=== PATIENT | female | born 1955 | race Caucasian/White ===

== ENCOUNTER 2023-10-01 09:30 | Day surgery (SDC) | payer BC ==
[2023-09-11 13:21] LABS: ALBUMIN 3.5 g/dL (3.4-4.8); CREATININE 0.84 mg/dL (0.55-1.30); POTASSIUM 4.3 mmol/L (3.5-5.1); TOTAL BILIRUBIN 0.6 mg/dL (0.0-1.0); TOTAL PROTEIN, SERUM 7.6 g/dL (6.4-8.3)
[2023-09-11 13:33] LABS: BASOPHILS # (AUTO) 0.1 K/uL (0.0-0.2); BASOPHILS % (AUTO) 0.8 % (0.0-2.0); EOSINOPHILS # (AUTO) 0.1 K/uL (0.0-0.4); EOSINOPHILS % (AUTO) 0.5 % (0.0-4.0); HEMATOCRIT 44.8 % (36-48); HEMOGLOBIN 14.4 g/dL (12.0-16.0); LYMPHOCYTES % (AUTO) 19.5 % (20.5-51.5); MEAN CORPUSCULAR HEMOGLOBIN 26 pg (27-31); MEAN CORPUSCULAR HGB CONC 32 % (32-36); MEAN CORPUSCULAR VOLUME 80 fL (79.0-98.0); MONOCYTES # (AUTO) 0.5 K/uL (0.0-1.0); NEUTROPHILS # (AUTO) 7.4 K/uL (1.8-7.7); NEUTROPHILS % (AUTO) 74.2 % (40.0-70.0); PLATELET COUNT (AUTO) 259 K/uL (130-430); RED BLOOD CELL COUNT(AUTO) 5.57 MIL/uL (4.2-6.2); RED CELL DISTRIBUTION WIDTH 14.8 % (9.0-15.0)
[2023-09-11 14:09] LABS: PROTHROMBIN TIME 10.6 SECS (9.5-12.5)
[~2023-10-01] VITALS: Ht 162.6 cm; Wt 100.4 kg
[2023-10-01] MEDS: CEFAZOLIN SOD 2 GM in D5W 50 ML IV ONE (07:00)
[2023-10-01] MEDS: ACETAMINOPHEN 500 MG TABLET ONE (09:43)
[2023-10-01] MEDS: GABAPENTIN 300 MG CAPSULE ONE (09:43)
[2023-10-01] MEDS: GABAPENTIN 300 MG CAPSULE PO ONE (10:08)
[2023-10-01] MEDS: ACETAMINOPHEN 500 MG TABLET PO ONE (10:08)
[2023-10-01] MEDS ORDERED: HYDROmorphone 1 MG/ML INJ. CARTRIDGE IVP PRN ×4 (11:00→12:00)
[2023-10-01] MEDS ORDERED: LORATADINE 10 MG TABLET PO PRN (11:00)
[2023-10-01] MEDS ORDERED: traMADol HCL HCL 50 MG TABLET (ULTRAM) PO PRN (11:00)
[2023-10-01] MEDS ORDERED: ONDANSETRON HCL 4 MG/2 ML VIAL IVP PRN (11:45)
[2023-10-01] MEDS ORDERED: MEPERIDINE HCL/PF 25 MG/ML DISP.SYRIN IVP PRN (12:00)
[2023-10-01] MEDS ORDERED: METOCLOPRAMIDE HCL 10 MG/2 ML VIAL IVP PRN ×2 (12:00→13:45)
[2023-10-01] MEDS ORDERED: LABETALOL 100 MG/ 20ML VIAL IVP PRN (12:00)
[2023-10-01] MEDS ORDERED: LACTULOSE 20 GM/30 ML UDC PO PRN (13:45)
[2023-10-01] MEDS ORDERED: DIPHENHYDRAMINE HCL 25 MG CAPSULE PO PRN (13:45)
[2023-10-01] MEDS ORDERED: BISACODYL 10 MG/SUPPOSITORY RC PRN (13:45)
[2023-10-01] MEDS ORDERED: ceFAZolin SODIUM 1 GM VIAL ONE (13:45)
[2023-10-01] MEDS: HYDROmorphone 1 MG/ML INJ. CARTRIDGE IVP PRN (14:41)
[2023-10-01] MEDS: HYDROmorphone 1 MG/ML INJ. CARTRIDGE ONE ×2 (14:41→15:03)
[2023-10-01] MEDS ORDERED: EMPA10TA PO (14:52)
[2023-10-01] MEDS ORDERED: VITD2000 PO (14:52)
[2023-10-01] MEDS ORDERED: CELE200C PO (14:52)
[2023-10-01] MEDS ORDERED: LIP80 PO (14:52)
[2023-10-01] MEDS ORDERED: BENA20TA75 PO (14:52)
[2023-10-01] MEDS ORDERED: INSULIN REGULAR, HUMAN 100 UNITS/ML, 3 ML VIAL (humuLIN R) SUBCUT PRN (15:30)
[2023-10-01 16:00] VITALS: BP_SYST 136; PULSE 64; RESP 16; TEMP 96.2; O2SAT 97
[2023-10-01] MEDS: oxyCODONE HCL 5 MG TABLET PO PRN (16:26)
[2023-10-01] MEDS: hydrALAZINE HCL 20 MG/ML VIAL IVP PRN (17:43)
[2023-10-01] MEDS: LR 1,000 ML IV SCH (17:47)
[2023-10-01] MEDS: KETOROLAC TROMETHAMINE 10 MG TABLET (TORADOL) PO SCH (17:57)
[2023-10-01] MEDS: ceFAZolin SODIUM 2 GM in D5W 50 ML IV SCH (18:07)
[2023-10-01 18:33] VITALS: BP_SYST 136; PULSE 64; RESP 16; TEMP 96.2
[2023-10-01 18:49] VITALS: O2SAT 97
[2023-10-01 20:03] VITALS: BP_SYST 119; PULSE 88; RESP 18; TEMP 98.8; O2SAT 95
[2023-10-01] MEDS: SENNOSIDES/DOCUSATE SODIUM 1 TAB TABLET(SENOKOT-S) PO SCH (20:55)
[2023-10-02 00:34] VITALS: BP_SYST 124; PULSE 78; RESP 15; TEMP 97.8; O2SAT 95
[2023-10-02] MEDS: ACETAMINOPHEN 500 MG TABLET PO SCH (05:55)
[2023-10-02 08:00] VITALS: O2SAT 95
[2023-10-02 08:38] VITALS: BP_SYST 121; PULSE 66; RESP 12; TEMP 96.3; O2SAT 95
[2023-10-02] MEDS ORDERED: BENAZEPRIL HCL 20 MG TABLET (LOTENSIN) PO SCH (09:00)
[2023-10-02] MEDS: ATORVASTATIN 20 MG TABLET PO SCH (09:26)
[2023-10-02] MEDS: lisinopriL 20 MG TABLET PO SCH (09:27)
[2023-10-02] MEDS: ASPIRIN 81 MG TAB.CHEW PO SCH (09:27)
[2023-10-02] MEDS: oxyCODONE HCL 5 MG TABLET PO PRN (09:29)
[2023-10-02] MEDS: CELECOXIB 200 MG CAPSULE PO SCH (11:08)
[2023-10-02 11:39] VITALS: BP_SYST 114; PULSE 76; RESP 16; TEMP 97.9; O2SAT 96
[2023-10-02 12:43] VITALS: BP_SYST 114; PULSE 76; RESP 16; TEMP 97.9; O2SAT 96
== END 2023-10-02 13:55 | disposition home or self-care (01) ==
LOC: SDS 09:30 → SMU 09:30 → SDS 10-02 13:55
PROVIDERS: ATTEND Orthopaedic Surgery Sports Medicine
DX: M17.11 Unilateral primary osteoarthritis, right knee (principal); M25.561 Pain in right knee; I12.9 Hypertensive chronic kidney disease with stage 1 through stage 4 chronic kidney disease, or unspecified chronic kidney disease; E11.22 Type 2 diabetes mellitus with diabetic chronic kidney disease; N18.2 Chronic kidney disease, stage 2 (mild); E78.5 Hyperlipidemia, unspecified; F41.9 Anxiety disorder, unspecified; Z88.5 Allergy status to narcotic agent; G89.18 Other acute postprocedural pain; E66.01 Morbid (severe) obesity due to excess calories; Z68.38 Body mass index [BMI] 38.0-38.9, adult; Z96.652 Presence of left artificial knee joint; Z79.899 Other long term (current) drug therapy
CPT/HCPCS: 80053; 85025; 85610; 85730; 87081; 36415; 27447; 97162; 64447; 73564; 97530 ×2; 97116 ×2; 82948; 88305; 88311; 97110; 96379; J3490 ×2; J0690; J0360; J1815; J3465; J2405 ×2; J2704; J3370; J3010; J1170; J7060; J7120; J7030; C1776 ×3